=== PATIENT | male | born 1935 | race Caucasian/White ===

== ENCOUNTER 2018-12-18 05:45 | Emergency (ER) ==
[2018-12-18 05:56] VITALS: BP 122/66; TEMP 97.5; BMI 28.1
[2018-12-18] MEDS ORDERED: K-DUR PO STA (06:33)
--- NOTE | 2018-12-18 06:39 | ED.PDOC ---
General ED Provider: Dr. ANA ALMODOVAR-ER Chief Complaint: Fall Stated Complaint: i fell --my ribs hurt Time Seen by Physician: 05:50 Mode of Arrival: Ambulance Information Source: Patient, Family, EMT Exam Limitations: No limitations Primary Care Provider: HILARIA MOODY Nursing and Triage Documentation Reviewed and Agree: Yes Does patient meet sepsis criteria?: No System Inflammatory Response Syndrome: Not Applicable Sepsis Protocol: For patient's 13 years and over: Temp is 96.8 and below OR 101 and greater Pulse >90 BPM Resp >20/minute Acutely Altered Mental Status Are patient's symptoms suggestive of a new infection, such as: -Pneumonia -Skin, Soft Tissue -Endocarditis -UTI -Bone, Joint Infection -Implantable Device -Acute Abdominal Infection -Wound Infection -Meningitis -Blood Stream Catheter Infection -Unknown Trauma/Injury Complaint Exam - Truncal Trauma Complaint/Exam Location of Pain: Reports: Right, Chest Symptoms Are: Still present Onset of Pain: Reports: Immediate Initial Severity: Mild Current Severity: Mild Mechanism: Reports: Fall Aggravating: Reports: None Alleviating: Reports: None Associated Signs and Symptoms: Reports: Chest pain Immobilization Removed Post Exam: No Vertebral Tenderness Present: No Vertebral Deformity Present: No Trachial Deviation Present: No JVD Present: No Crepitus Present: No Diminished Breath Sounds: No Reproducible Pain at: right chest wall Muffled Heart Sounds Present: No Paradoxical Chest Wall Movement Present: No Abdominal Guarding Present: No Abdominal Rigidity Present: No Referred Shoulder Pain (Kehr's Sign) Present: No Skin Findings: Present: Tenderness Differential Diagnoses: Chest Wall Contusion, Chest Wall Abrasion, Rib Fracture Review of Systems - Review Of Systems Constitutional: Reports: No symptoms Eyes: Reports: No symptoms Ears, Nose, Mouth, Throat: Reports: No symptoms Respiratory: Reports: No symptoms Cardiac: Reports: No symptoms GI: Reports: No symptoms : Reports: No symptoms Musculoskeletal: Reports: Joint pain, Muscle pain Skin: Reports: No symptoms Neurological: Reports: No symptoms Endocrine: Reports: No symptoms Hematologic/Lymphatic: Reports: No symptoms All Other Systems: Reviewed and Negative Past Medical History - Past Medical History Previously Healthy: Yes Endocrine: Reports: Unknown Cardiovascular: Reports: Unknown Respiratory: Reports: Unknown Hematological: Reports: Unknown Gastrointestinal: Reports: Unknown Genitourinary: Reports: Unknown Neuro/Psych: Reports: Unknown Musculoskeletal: Reports: Unknown Cancer: Reports: Unknown - Surgical History General Surgical History: Reports: Unknown - Family History Family History: Reports: Unknown - Social History Smoking Status: Former smoker Hx Substance Use: No Alcohol Screening: None - Immunizations Tetanus Shot up to Date: No (UNSURE) Physical Exam - Physical Exam Appearance: Well-appearing, No pain distress, Well-nourished Pain Distress: Mild Eyes: MARIFER, EOMI, Conjunctiva clear ENT: Ears normal, Nose normal, Oropharynx normal Neck: Supple Respiratory: Airway patent, Breath sounds clear, Breath sounds equal, Respirations nonlabored Cardiovascular: RRR GI/: Soft, Nontender, No masses, Bowel sounds normal, No Organomegaly Musculoskeletal: Normal strength, ROM intact, No edema, No calf tenderness Skin: Warm, Dry, Normal color Neurological: Sensation intact, Motor intact, Reflexes intact, Cranial nerves intact, Alert, Oriented Psychiatric: Affect appropriate, Mood appropriate Interpretation - Radiology Interpretation Radiology Interpretation By: Radiologist Radiology Results: Negative Exam Interpreted: CT Scan - EKG Interpretation Time of EKG #1: 06:41 Rate: Normal Rhythm: Sinus Ectopy: None Leupp: NL ST Segment: Normal Interpretation: nsr Critical Care Note - Critical Care Note Total Time (mins): 0 Course - Course Hematology/Chemistry: 12/18/18 06:00 12/18/18 06:00 Orders, Labs, Meds: Lab Review 12/18/18 12/18/18 12/18/18 06:00 06:00 06:00 WBC 6.91 RBC 4.57 L Hgb 12.9 L Hct 39.9 L MCV 87.3 MCH 28.2 MCHC 32.3 RDW Coeff of Silvia 13.1 Plt Count 136 L Immature Gran % (Auto) 0.7 Neut % (Auto) 75.1 Lymph % (Auto) 12.6 Chase % (Auto) 10.9 H Eos % (Auto) 0.4 Baso % (Auto) 0.3 Immature Gran # (Auto) 0.1 Neut # (Auto) 5.2 Lymph # (Auto) 0.9 Chase # (Auto) 0.8 Eos # (Auto) 0.0 Baso # (Auto) 0.0 Sodium 139.5 Potassium 2.99 L Chloride 100.3 Carbon Dioxide 31.4 H Anion Gap 10.79 BUN 15.8 Creatinine 1.10 Estimated GFR (MDRD) 64.00 BUN/Creatinine Ratio 14.36 Glucose 118.5 H Calcium 8.49 Total Bilirubin 0.76 AST 36.4 ALT 19.5 Alkaline Phosphatase 53.1 L Total Creatine Kinase 255.4 H CK-MB (CK-2) 3.360 H CK-MB (CK-2) % 1.3100 Troponin I 0.020 Total Protein 7.53 Albumin 4.53 Globulin 3.00 Albumin/Globulin Ratio 1.51 Orders Category Date Time Status EKG-(ED ONLY) Stat CARDIO 12/18/18 05:51 Completed ED MULTIGRAPH OPERATOR APPLIED .ONCE EMERGENCY 12/18/18 05:54 Active CBC W/ AUTO DIFF Stat LAB 12/18/18 06:00 Completed COMPREHENSIVE METABOLIC PANEL Stat LAB 12/18/18 06:00 Completed CREATINE KINASE Stat LAB 12/18/18 06:00 Completed TROPONIN I Stat LAB 12/18/18 06:00 Completed Hydrocodone Bit/Acetaminophen [[place] 5-325] MEDS 12/18/18 06:55 Stat 1 tab PO ONCE STA Potassium Chloride [K-Dur] MEDS 12/18/18 06:33 Discontinued 40 meq PO ONCE STA CT CERVICAL SPINE W/O CONTRAST Stat RADS 12/18/18 05:[address] CHEST W/O CONTRAST Stat RADS 12/18/18 05:[address] HEAD W/O CONTRAST Stat RADS 12/18/18 05:53 Completed SHOULDER, RIGHT MIN 2V Stat RADS 12/18/18 06:39 Stop Req Medications Discontinued Medications Generic Name Dose Route Start Last Admin Trade Name Freq PRN Reason Stop Dose Admin Potassium Chloride 40 meq 12/18/18 06:33 12/18/18 06:37 K-Dur PO 12/18/18 06:34 40 meq ONCE STA Administration Vital Signs: Temp Pulse Resp BP Pulse Ox 12/18/18 05:45 97.5 F L 83 22 122/66 94 L Departure - Departure Time of Disposition: 06:56 Disposition: HOME SELF-CARE Discharge Problem: Chest wall pain, Hypokalemia Instructions: Chest Wall Pain (ED) Condition: Good Pt referred to PMD for follow-up: Yes IPMP verified?: No Additional Instructions: norco 5mg q 4hrs prn pain #15-=--f/u with dr moody and have potassium rechecked Allergies/Adverse Reactions: Allergies No Known Allergies Allergy (Unverified 12/18/18 05:55) Home Medications: Ambulatory Orders Clopidogrel Bisulfate [Clopidogrel] 75 mg PO DAILY 12/18/18 Finasteride 5 mg PO DAILY 12/18/18 Hydrochlorothiazide 12.5 mg PO DAILY 12/18/18 Mirabegron [Myrbetriq] 50 mg PO DAILY 12/18/18 Potassium Chloride [Micro-K Cap] 10 meq PO DAILY 12/18/18 Pravastatin Sodium [Pravachol] 80 mg PO BEDTIME 12/18/18 Tamsulosin HCl [Flomax] 0.4 mg PO DAILY 12/18/18 Disposition Discussed With: Patient, Family
--- NOTE | 2018-12-18 06:43 | CT ---
EXAM: CT head without contrast 12/18/2018. Sagittal and coronal reformatted images obtained HISTORY: Trauma COMPARISON: None. FINDINGS: There is no evidence of intracranial hemorrhage. The midline is maintained. There is no h ydrocephalus. Generalized atrophy and chronic small vessel ischemic changes. No cerebellar tonsilla r ectopia. Evaluation of the calvarium shows no fracture. The mastoid air cells are normally pneuma tized. IMPRESSION: No acute intracranial abnormality.
--- NOTE | 2018-12-18 06:46 | CT ---
EXAM: CT cervical spine without intravenous contrast 12/18/2018. Sagittal and coronal reformatted i mages obtained HISTORY: Trauma. Dizziness. Fall COMPARISON: None. FINDINGS: Kyphotic curvature of the cervical spine. Vertebral bodies appear intact without evidence of acute fracture. The facet joints align normally Multilevel severe degenerative disc disease. Chronic facet arthropathy. Near-complete loss of disc height at C3-C4, C5-C6, C6-C7 and C7-T1. Multilevel anterior and posterior osteophyte formation There is no evidence of acute fracture or subluxation at any level. IMPRESSION: Severe degenerative changes of the cervical spine. No acute post traumatic osseous abno rmality.
--- NOTE | 2018-12-18 06:52 | CT ---
EXAM: CT chest without intravenous contrast 12/18/2018. Sagittal and coronal reformatted images obt ained. Three-dimensional reconstructed images provide HISTORY: Fall. Pain COMPARISON: None. FINDINGS: The heart size appears within normal limits. No pericardial effusion. Atherosclerotic vascular disease with coronary artery calcifications. Minimal atelectasis. There is no pulmonary consolidation, effusion or pneumothorax. Emphysematous c hanges within both lungs. Limited views of the upper abdomen show gallstones. Right renal cysts. No acute osseous abnormality. IMPRESSION: 1. Emphysema. 2. Atelectasis. 3. Atherosclerotic vascular disease. 4. Cholelithiasis. 5. Right renal cysts.
[2018-12-18] MEDS ORDERED: NORCO 5-325 PO STA (06:55)
== END 2018-12-18 07:47 | disposition home or self-care (01) ==
LOC: ED 05:45
DX: R07.89 Other chest pain (principal); E87.6 Hypokalemia; W19.XXXA Unspecified fall, initial encounter
CPT/HCPCS: 36415; 80053; 82550; 82553; 84484; 85025; 93005; 93010; 99283

== ENCOUNTER 2018-12-21 07:57 | Outpatient (CLI) | END 2018-12-21 08:07 | disposition short-term general hospital (02) | LOC: AMBL 07:57 | PROVIDERS: ATTEND Emergency Medicine | DX: R41.82 Altered mental status, unspecified (principal); S09.93XA Unspecified injury of face, initial encounter; R10.31 Right lower quadrant pain; I48.91 Unspecified atrial fibrillation; R32 Unspecified urinary incontinence; W06.XXXA Fall from bed, initial encounter ==